=== PATIENT | female | born 1950 | race Caucasian/White ===

== ENCOUNTER → 2016-12-06 | Outpatient (CLI) | payer MEDICARE | LOC: LAB 08:15 | DX: E11.9 Type 2 diabetes mellitus without complications (principal); E55.0 Rickets, active; J01.80 Other acute sinusitis; I10 Essential (primary) hypertension; E78.00 Pure hypercholesterolemia, unspecified; E04.9 Nontoxic goiter, unspecified; E55.9 Vitamin D deficiency, unspecified ==

== ENCOUNTER → 2017-03-18 | Outpatient (CLI) | payer MEDICARE | LOC: RAD 03-15 12:05 | DX: Z13.820 Encounter for screening for osteoporosis (principal) ==

== ENCOUNTER → 2017-04-17 | Outpatient (CLI) | payer MEDICARE | LOC: MAMMO 10:18 | DX: Z12.31 Encounter for screening mammogram for malignant neoplasm of breast (principal) | CPT/HCPCS: G0202 ==

== ENCOUNTER → 2017-05-07 | Outpatient (CLI) | payer MEDICARE | LOC: LAB 07:15 | DX: I10 Essential (primary) hypertension (principal); E11.9 Type 2 diabetes mellitus without complications; E78.00 Pure hypercholesterolemia, unspecified; E04.9 Nontoxic goiter, unspecified ==

== ENCOUNTER → 2017-07-03 | Outpatient (CLI) | payer MEDICARE | LOC: RAD 10:08 | DX: M17.12 Unilateral primary osteoarthritis, left knee (principal) ==

== ENCOUNTER → 2017-08-28 | Outpatient (CLI) | payer MEDICARE | LOC: LAB 10:00 | DX: E11.9 Type 2 diabetes mellitus without complications (principal) ==

== ENCOUNTER 2017-10-15 08:30 | Outpatient (RCR) | payer MEDICARE | END 2017-10-15 09:00 | disposition home or self-care (01) | LOC: PT 08:30 | DX: M25.562 Pain in left knee (principal); Z88.0 Allergy status to penicillin | CPT/HCPCS: G8978-GP; G8979-GP ==

== ENCOUNTER → 2017-12-01 | Outpatient (CLI) | payer MEDICARE | LOC: LAB 09:02 | DX: E11.9 Type 2 diabetes mellitus without complications (principal) ==

== ENCOUNTER → 2018-03-17 | Outpatient (CLI) | payer MEDICARE ==
[2018-03-17 09:52] LABS: BUN/CREATININE RATIO 28.9 (6.0-26.0); CALCIUM 9.3 mg/dL (8.4-10.2); POTASSIUM 4.6 mmol/L (3.6-5.0); TOTAL BILIRUBIN 0.4 mg/dL (0.2-1.3); TOTAL PROTEIN 7.3 g/dL (6.3-8.2)
== END ==
LOC: LAB 08:39
PROVIDERS: Family Medicine
DX: I10 Essential (primary) hypertension (principal); E11.9 Type 2 diabetes mellitus without complications; E78.00 Pure hypercholesterolemia, unspecified; E04.9 Nontoxic goiter, unspecified

== ENCOUNTER → 2018-07-06 | Outpatient (CLI) | payer MEDICARE | LOC: LAB 08:32 | DX: E11.9 Type 2 diabetes mellitus without complications (principal) ==

== ENCOUNTER → 2018-07-08 | Outpatient (CLI) | payer MEDICARE | LOC: LAB 15:41 | DX: E11.9 Type 2 diabetes mellitus without complications (principal) ==

== ENCOUNTER → 2018-07-22 | Outpatient (CLI) | payer MEDICARE | LOC: MAMMO 09:08 | DX: Z12.31 Encounter for screening mammogram for malignant neoplasm of breast (principal); Z00.00 Encounter for general adult medical examination without abnormal findings; Z23 Encounter for immunization; I10 Essential (primary) hypertension; E78.00 Pure hypercholesterolemia, unspecified; E11.9 Type 2 diabetes mellitus without complications; M19.90 Unspecified osteoarthritis, unspecified site ==

== ENCOUNTER → 2019-07-07 | Outpatient (CLI) | payer MEDICARE ==
[2019-07-07 08:02] LABS: POTASSIUM 4.7 mmol/L (3.5-5.1)
[2019-07-07 08:04] LABS: CALCIUM 10.1 mg/dL (8.3-10.5)
== END ==
LOC: LAB 07:21
PROVIDERS: Family Medicine
DX: E11.9 Type 2 diabetes mellitus without complications (principal); I10 Essential (primary) hypertension; M17.12 Unilateral primary osteoarthritis, left knee; E55.9 Vitamin D deficiency, unspecified

== ENCOUNTER → 2019-07-23 | Outpatient (CLI) | payer MEDICARE | LOC: MAMMO 10:26 | DX: Z12.31 Encounter for screening mammogram for malignant neoplasm of breast (principal) ==

== ENCOUNTER → 2019-07-23 | Outpatient (CLI) | payer MEDICARE | LOC: MAMMO 10:25 → RAD 10:25 → MAMMO 11:15 | DX: Z00.00 Encounter for general adult medical examination without abnormal findings (principal); Z12.31 Encounter for screening mammogram for malignant neoplasm of breast; Z13.820 Encounter for screening for osteoporosis; I10 Essential (primary) hypertension; E11.9 Type 2 diabetes mellitus without complications; E78.00 Pure hypercholesterolemia, unspecified; E55.9 Vitamin D deficiency, unspecified ==

== ENCOUNTER → 2020-07-19 | Outpatient (CLI) | payer MEDICARE ==
[2020-07-24 10:17] LABS: POTASSIUM 4.4 mmol/L (3.5-5.1)
[2020-07-24 10:18] LABS: ALBUMIN 4.1 g/dL (3.4-4.8)
[2020-07-24 10:19] LABS: CALCIUM 9.6 mg/dL (8.3-10.5)
[2020-07-24 10:20] LABS: TOTAL PROTEIN 6.8 g/dL (6.2-8.1)
[2020-07-24 10:22] LABS: TOTAL BILIRUBIN 0.3 mg/dL (0.2-1.2)
== END ==
LOC: LAB 07:16
PROVIDERS: Family Medicine
DX: Z01.89 Encounter for other specified special examinations (principal)

== ENCOUNTER → 2020-07-24 | Outpatient (CLI) | payer MEDICARE | LOC: LAB 09:51 | DX: E11.9 Type 2 diabetes mellitus without complications (principal) ==

== ENCOUNTER → 2020-08-01 | Outpatient (CLI) | payer MEDICARE | LOC: MAMMO 10:41 | DX: Z12.31 Encounter for screening mammogram for malignant neoplasm of breast (principal) ==

== ENCOUNTER → 2020-10-23 | Outpatient (CLI) | payer MEDICARE | LOC: LAB 09:00 | DX: E11.9 Type 2 diabetes mellitus without complications (principal) ==

== ENCOUNTER → 2021-01-15 | Outpatient (CLI) | payer MEDICARE | LOC: LAB 08:21 | DX: E11.9 Type 2 diabetes mellitus without complications (principal) ==

== ENCOUNTER → 2021-05-18 | Outpatient (CLI) | payer MEDICARE | LOC: LAB 09:44 | DX: E11.9 Type 2 diabetes mellitus without complications (principal); E78.00 Pure hypercholesterolemia, unspecified ==

== ENCOUNTER → 2021-08-20 | Outpatient (CLI) | payer MEDICARE | LOC: LAB 09:39 | DX: E11.9 Type 2 diabetes mellitus without complications (principal) ==

== ENCOUNTER → 2021-12-17 | Outpatient (CLI) | payer MEDICARE | LOC: LAB 08:16 | DX: E11.9 Type 2 diabetes mellitus without complications (principal) ==

== ENCOUNTER 2022-02-18 08:54 | Outpatient (RCR) | payer MEDICARE | END 2022-02-28 | disposition home or self-care (01) | LOC: PT | DX: M25.561 Pain in right knee (principal) ==

== ENCOUNTER 2022-03-01 08:27 | Outpatient (RCR) | payer MEDICARE | END 2022-03-31 | disposition home or self-care (01) | LOC: PT | DX: M25.561 Pain in right knee (principal) ==

== ENCOUNTER 2022-04-03 07:58 | Outpatient (RCR) | payer MEDICARE | END 2022-05-01 16:25 | disposition home or self-care (01) | LOC: PT 07:58 | DX: M25.561 Pain in right knee (principal) ==

== ENCOUNTER → 2022-07-04 | Outpatient (CLI) | payer MEDICARE ==
[2022-07-04 09:21] LABS: POTASSIUM 4.4 mmol/L (3.5-5.1)
[2022-07-04 09:22] LABS: CALCIUM 10.2 mg/dL (8.3-10.5)
[2022-07-04 09:24] LABS: TOTAL PROTEIN 6.9 g/dL (6.2-8.1)
[2022-07-04 09:25] LABS: TOTAL BILIRUBIN 0.5 mg/dL (0.2-1.2)
== END ==
LOC: LAB 08:51
PROVIDERS: Family Medicine
DX: Z00.00 Encounter for general adult medical examination without abnormal findings (principal); I10 Essential (primary) hypertension; E78.00 Pure hypercholesterolemia, unspecified; E11.319 Type 2 diabetes mellitus with unspecified diabetic retinopathy without macular edema; E55.9 Vitamin D deficiency, unspecified; Z71.89 Other specified counseling

== ENCOUNTER → 2023-10-09 | Outpatient (CLI) | payer MEDICARE ==
[2023-10-09 09:19] LABS: CALCIUM 9.9 mg/dL (8.3-10.5)
== END ==
LOC: LAB 08:57
PROVIDERS: Family Medicine
DX: E11.9 Type 2 diabetes mellitus without complications (principal)

== ENCOUNTER → 2024-01-28 | Outpatient (CLI) | payer MEDICARE ==
[2024-03-18 10:04] LABS: CALCIUM 10.2 mg/dL (8.3-10.5)
== END ==
LOC: LAB 08:50
PROVIDERS: Family Medicine
DX: E11.9 Type 2 diabetes mellitus without complications (principal)

== ENCOUNTER → 2024-05-10 | Outpatient (CLI) | payer MEDICARE ==
[2024-05-10 09:48] LABS: CALCIUM 10.1 mg/dL (8.3-10.5)
== END ==
LOC: LAB 09:18
PROVIDERS: Family Medicine
DX: E11.9 Type 2 diabetes mellitus without complications (principal)

== ENCOUNTER → 2024-09-23 | Outpatient (CLI) | payer MEDICARE ==
[2024-09-23 09:20] LABS: CALCIUM 9.7 mg/dL (8.3-10.5)
== END ==
LOC: LAB 08:34
PROVIDERS: Family Medicine
DX: E11.9 Type 2 diabetes mellitus without complications (principal); E78.2 Mixed hyperlipidemia

== ENCOUNTER → 2024-10-04 | Outpatient (CLI) | payer MEDICARE | LOC: MAMMO 14:27 | DX: Z12.31 Encounter for screening mammogram for malignant neoplasm of breast (principal) ==